=== PATIENT | male | born 1980 | race African-American/Black ===

== ENCOUNTER 2020-05-02 12:30 | Emergency (ER) | payer OTHER ==
[~2020-05-02] VITALS: Ht 157.5 cm; Wt 42.7 kg
[2020-05-02] MEDS ORDERED: FORTAMET1000 MG PO (12:57)
[2020-05-02 13:34] LABS: PLATELET COUNT 431 K/uL (142-355)
[2020-05-02 13:49] LABS: POTASSIUM 3.3 mmol/L (3.6-5.2)
[2020-05-02 15:30] VITALS: TEMP 98.4
[2020-05-02 18:28] VITALS: BP 105/74
== END 2020-05-02 18:30 | disposition home or self-care (01) ==
LOC: ED 12:30
PROVIDERS: Emergency Medicine Emergency Medical Services
DX: E11.65 Type 2 diabetes mellitus with hyperglycemia (principal); Z03.818 Encounter for observation for suspected exposure to other biological agents ruled out
CPT/HCPCS: 36415; 80053; 82962; 84484; 85027; 87502; 87635; 93005; 96360; 96361; 96366; 96375; 99284; J1815; U0003